=== PATIENT | female | born 1975 | race Caucasian/White ===

== ENCOUNTER 2022-10-03 13:41 | Emergency (ER) | payer OTHER, SELFPAY ==
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
[2022-10-03 14:08] VITALS: BP 132/79; PULSE 80; RESP 16; TEMP 36.5; O2SAT 99
--- NOTE | 2022-10-03 14:57 | PC.NURSE ---
C-collar in place from triage.
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
--- NOTE | 2022-10-03 15:45 | PC.NURSE ---
PT taken to images at this time.
[2022-10-03] MEDS: KETOROLAC (*BKC) 60 MG/2 ML VIAL IM (15:55)
[2022-10-03 16:34] VITALS: BP 118/87; PULSE 75; RESP 16; O2SAT 100
== END 2022-10-03 16:36 | disposition home or self-care (01) ==
PROVIDERS: Emergency Provider Emergency Medicine; PCP Nurse Practitioner Family
DX: S13.4XXA Sprain of ligaments of cervical spine, initial encounter (principal); S16.1XXA Strain of muscle, fascia and tendon at neck level, initial encounter; M47.812 Spondylosis without myelopathy or radiculopathy, cervical region; V43.62XA Car passenger injured in collision with other type car in traffic accident, initial encounter
CPT/HCPCS: 72040; 72072; 96372; 99283; J1885

== ENCOUNTER 2022-12-16 07:56 | Emergency (ER) | payer OTHER, SELFPAY ==
--- NOTE | ~2022-12-16 | XR_ITS ---
EXAMINATION: XR forearm LT 2V DATE: 12/16/2022 09:23 INDICATION: Left forearm pain. Fall. TECHNIQUE: 2 views of left forearm were obtained. COMPARISON: None. FINDINGS: Bone alignment is normal. No fracture. Joint spaces are normal. No elbow joint effusion. IMPRESSION: 1. No fracture. Reviewed, dictated and finalized at location A. IMPRESSION: 1. No fracture.
--- NOTE | ~2022-12-16 | XR_ITS ---
EXAMINATION: XR ankle RT 2V DATE: 12/16/2022 09:24 INDICATION: Right ankle pain. Fall. TECHNIQUE: 2 views of right ankle were obtained. COMPARISON: None. FINDINGS: Bone alignment is normal. No fracture. Joint spaces are normal. There is an enthesophyte at posterior aspect of calcaneal tuberosity. IMPRESSION: 1. No fracture. Reviewed, dictated and finalized at location A. IMPRESSION: 1. No fracture.
--- NOTE | ~2022-12-16 | XR_ITS ---
Left Knee Technique: AP, lateral, and oblique views were obtained. Clinical History: Pain Findings: No fracture or dislocation is seen. Osseous alignment is anatomic. Joint spaces are preserv ed without degenerative or erosive change. Soft tissues are unremarkable. No joint effusion is seen. Impression: Unremarkable left knee radiographs. Reviewed, dictated and finalized at location . Impression: Unremarkable left knee radiographs.
[2022-12-16 08:11] VITALS: BP 142/92; PULSE 88; RESP 18; TEMP 36.5; O2SAT 98
[2022-12-16 08:23] VITALS: BP 142/92; PULSE 88; RESP 18; TEMP 36.5; O2SAT 98
--- NOTE | 2022-12-16 09:02 | ED.FALL ---
HPI - Fall General Chief Complaint: Fall Stated Complaint: fall Time Seen by Provider: 12/16/22 08:19 History of Present Illness HPI Narrative: 47-year-old female present to the emergency department for evaluation after having a ground-level fall. Patient states she was walking and twisted her right ankle. Patient states she did injure her left arm and left knee Related Data Allergies Allergy/AdvReac Type Severity Reaction Status Date / Time acetaminophen [From Percocet] Allergy Itching Verified 12/16/22 08:26 oxycodone [From Percocet] Allergy Itching Verified 12/16/22 08:26 Review of Systems Review of Systems: All systems reviewed & are unremarkable except as noted in HPI and below Exam Narrative: APPEARANCE: Well appearing, no pain, no distress, well-nourished. HEAD: normocephalic, atraumatic. EYES: PERRLA/EOMI, conjunctivae clear. NOSE: Normal no drainage NECK: Supple. No adenopathy, no masses. RESPIRATORY: Airway patent, respirations nonlabored. Clear to auscultation bilaterally, no rales, rhonchi, wheezing. CARDIOVASCULAR: Regular rate and rhythm without murmurs rubs or gallops. ABDOMINAL: Soft, nontender, nondistended, normal bowel sounds MUSCULOSKELETAL: Left forearm tenderness to palpation without deformity or ecchymosis. No left hand tenderness or wrist tenderness. Left knee tenderness to palpation with no significant deformity. Right ankle pain NEURO: Alert. Cranial nerves II through XII intact. Good gait. Good coordination SKIN: Warm, dry. Normal Color PSYCHIATRIC: Normal affect/mood. Course Course Emergency Course: 47-year-old female presented the emergency department for evaluation of left arm left knee and right ankle pain after falling. X-rays were negative for acute fractures or dislocations. Patient was updated the results of the work-up. Patient was advised to take Tylenol and ibuprofen for pain control. Vital Signs Vital signs: Vital Signs Temperature 97.7 F 12/16/22 08:11 Pulse Rate 88 12/16/22 08:11 Respiratory Rate 18 12/16/22 08:11 Blood Pressure 142/92 H 12/16/22 08:11 Pulse Oximetry 98 12/16/22 08:11 Temperature 97.7 F 12/16/22 08:23 Pulse Rate 88 12/16/22 08:23 Respiratory Rate 18 12/16/22 08:23 Blood Pressure 142/92 H 12/16/22 08:23 Pulse Oximetry 98 12/16/22 08:23 Oxygen Delivery Room Air 12/16/22 08:23 MDM - Fall Differential Diagnosis Differential diagnosis: Likely other (Forearm fracture, ankle fracture) Imaging Data Radiologist's impression: Impressions Forearm X-Ray 12/16/22 09:27 IMPRESSION: 1. No fracture. Ankle X-Ray 12/16/22 09:28 IMPRESSION: 1. No fracture. Knee X-Ray 12/16/22 09:28 Impression: Unremarkable left knee radiographs. Discharge Plan Discharge Clinical Impression: Arm pain, Acute leg pain, Ankle injury Patient Disposition: Home, Self-Care Condition: Stable Instructions: Antibiotic Form Additional Instructions: Tylenol and ibuprofen for pain control. Have close follow-up with your primary care physician. If you have any worsening symptoms then please call or return to the emergency department. Follow-up/Referrals: Felipa Diego, FUNERAL COUNSELOR [Primary Care Provider] -
== END 2022-12-16 10:19 | disposition home or self-care (01) ==
PROVIDERS: Emergency Provider Emergency Medicine
DX: S99.911A Unspecified injury of right ankle, initial encounter (principal); S59.912A Unspecified injury of left forearm, initial encounter; S89.92XA Unspecified injury of left lower leg, initial encounter; W18.39XA Other fall on same level, initial encounter; X50.9XXA Other and unspecified overexertion or strenuous movements or postures, initial encounter
CPT/HCPCS: 73090; 73562; 73600; 99284

== ENCOUNTER 2023-07-06 16:41 | Emergency (ER) | payer MEDICAID, SELFPAY ==
--- NOTE | ~2023-07-06 | XR_ITS ---
EXAMINATION: XR foot RT min 3V DATE: 07/06/2023 17:00 INDICATION: Right heel pain. TECHNIQUE: 3 views of right foot were obtained. COMPARISON: Right ankle radiographs 12/16/2022 FINDINGS: Bone alignment is normal. No fracture. There is mild osteoarthritis of first metatarsophala ngeal joint. There is an enthesophyte of posterior aspect of calcaneal tuberosity. IMPRESSION: 1. No fracture. Reviewed, dictated and finalized at location E. IMPRESSION: 1. No fracture.
[2023-07-06 16:42] VITALS: BP 135/98; PULSE 91; RESP 18; TEMP 36.6; O2SAT 100
--- NOTE | 2023-07-06 16:47 | ED.LOWEXIN ---
HPI - Extremity Injury (Lower) General Chief Complaint: Extremity Injury, Lower Stated Complaint: R foot pain Time Seen by Provider: 07/06/23 16:47 Source: patient Mode of arrival: ambulatory Limitations: no limitations History of Present Illness HPI Narrative: Katie is a 48-year-old female patient presenting to the ER today with complaints of right foot pain. She reports she is having pain over the plantar fascia and the anterior aspect the heel. This has been going on for 4 weeks. Was told that she had plantar fasciitis and was given prescription for anti-inflammatories. She states that she has taken anti-inflammatories and Tylenol occasionally for the pain but she cannot take the pain any longer. Pain is worse with ambulation. Related Data Allergies Allergy/AdvReac Type Severity Reaction Status Date / Time oxycodone Allergy Mild Unknown Unverified 07/06/23 16:44 Review of Systems Review of Systems: Pertinent positives per HPI. Patient denies any fever, chills, rash, headache, visual changes, dizziness, cough, runny nose, sore throat, shortness of breath, chest pain, palpitations, nausea, vomiting, diarrhea, constipation, abdominal pain, or any urinary issues. [facility] Past Medical History Medical History Healthy female adult Surgical History Surgical History No pertinent past surgical history Comments At the time of my signature, I reviewed and agree with the nursing past medical, surgical, social, and family history. There is no relevant family history pertinent to the patient complaint. Exam Narrative: General: Well-developed, well nourished, in no apparent distress Head: Normocephalic, atraumatic. Cardio: Regular rate and rhythm, s1 and s2 normal, no murmur appreciated. Resp: Clear to auscultation bilaterally, no rhonchi, rales, wheezing or rubs. Musculoskeletal: No deformity, tender to palpation over the plantar fascia and the anterior heel, no additional pain when doing dorsal flexion and plantar flexion against resistance, grossly normal range of motion, muscle strength strong and equal, peripheral pulse strong, no edema, no cyanosis, normal gait and station Course Course Emergency Course: Portions of this record may have been created with voice recognition software. Vital Signs Vital signs: Vital Signs Temperature 36.6 C 07/06/23 16:42 Pulse Rate 91 07/06/23 16:42 Respiratory Rate 18 07/06/23 16:42 Blood Pressure 135/98 H 07/06/23 16:42 Pulse Oximetry 100 07/06/23 16:42 Oxygen Delivery Room Air 07/06/23 16:42 Temperature 36.6 C 07/06/23 16:42 Pulse Rate 91 07/06/23 16:42 Respiratory Rate 18 07/06/23 16:42 Blood Pressure 135/98 H 07/06/23 16:42 Pulse Oximetry 100 07/06/23 16:42 Oxygen Delivery Room Air 07/06/23 16:42 Vital signs reviewed MDM - Extremity Injury (Lower) MDM Narrative Medical decision making narrative: At the time of visit patient is resting comfortably on the exam table. Patient appears to be nontoxic. Diagnostics: X-ray of the foot is negative for any sign of fracture or malalignment. Does have a posterior will calcaneal spur Plan: I suspect patient has plantar fasciitis/posterior heel spur. Prescription for Medrol Dosepak was sent to the pharmacy. Supportive measures were discussed with the patient and they voiced understanding discharge instructions and agrees to treatment plan. Return precautions reviewed Differential Diagnosis Differential diagnosis: Likely other (Plantar fasciitis, bone spur, tendinitis, acute foot pain) Imaging Data Radiologist's impression: ITS Impressions Foot X-Ray 07/06/23 17:06 IMPRESSION: 1. No fracture. Discharge Plan Discharge Clinical Impression: Plantar fasciitis Acute foot pain Qualifiers: Laterality: right Qualified Code(s): M79.671 -
== END 2023-07-06 18:00 | disposition home or self-care (01) ==
LOC: ANHED 17:53
PROVIDERS: Emergency Provider Nurse Practitioner Family; PCP Nurse Practitioner Family
DX: M72.2 Plantar fascial fibromatosis (principal); M77.31 Calcaneal spur, right foot
CPT/HCPCS: 73630; 99283

== ENCOUNTER 2023-09-05 06:51 | Day surgery (SDC) | payer OTHER, SELFPAY ==
--- NOTE | 2023-09-04 13:38 | PM.HPGS ---
History of Present Illness History of Present Illness Consent: Risks, benefits, and alternatives have been discussed and questions answered. Patient agrees to proceed with procedure. Chief complaint: Neoplasm screening. Narrative: Katie Vaca is a 48 year old female who is referred for colon cancer screening. Review of Systems Review of Systems: All systems reviewed & are unremarkable except as noted in HPI and below PMFSH Past Medical History Medical History Healthy female adult Surgical History Surgical History No pertinent past surgical history Social History Social History Smoking status: Former smoker Alcohol intake: current Substance use: never Substance use type: does not use Living arrangements: with family Spiritual care concerns: No Meds Home Medications and Allergies Home Medications Medication Instructions Recorded Confirmed Type montelukast 10 mg tablet 10 mg PO HS 08/24/23 09/05/23 History pantoprazole 40 mg tablet,delayed 40 mg PO DAILY 08/24/23 09/05/23 History release venlafaxine 75 mg capsule,extended 75 mg PO DAILY 08/24/23 09/05/23 History release 24 hr cetirizine 10 mg tablet (Zyrtec) 10 mg PO DAILY 09/05/23 09/05/23 History Allergies Allergy/AdvReac Type Severity Reaction Status Date / Time acetaminophen [From Percocet] Allergy Itching Verified 09/05/23 07:26 oxycodone [From Percocet] Allergy Itching Verified 09/05/23 07:26 Exam Resp: Auscultation: clear to auscultation bilaterally Cardio: Rate: regular rate Rhythm: regular rhythm GI: GI Palp: Yes Soft to palpation and No Tenderness to palpation present (GI) Assessment and Plan Assessment and plan (1) Colon cancer screening: Code(s): Z12.11 - Encounter for screening for malignant neoplasm of colon Status: Acute Assessment and Plan: Colonoscopy with possible biopsy or polypectomy or cautery or injection of substances.
[2023-09-05 07:27] VITALS: BP 142/97; PULSE 84; RESP 15; TEMP 36.7; O2SAT 100
[2023-09-05] MEDS: LACTATED RINGERS 1,000 ML 150 ML IV CONT (07:46)
--- NOTE | 2023-09-05 07:57 | WPDANESEPPF ---
Anes - Initial Pre Proc Eval Procedure: Operation Date: 09/05/23 08:30 Proposed Procedures p Screening Colonoscopy - Lazaro Caballero MD Date/Time: 09/05/23 07:57 Surgeon: Lazaro Caballero MD Pre Op Diagnosis: Neoplasm screening. Patient Data Age: 48 Gender: F Height: 1.7 m Weight: 86.5 kg Last Vital Signs Temp 36.7 C 09/05/23 07:27 Pulse 84 09/05/23 07:27 Resp 15 09/05/23 07:27 BP 142/97 H 09/05/23 07:27 Pulse Ox 100 09/05/23 07:27 O2 Del Method Room Air 09/05/23 07:27 Allergies Allergy/AdvReac Type Severity Reaction Status Date / Time acetaminophen [From Percocet] Allergy Itching Verified 09/05/23 07:26 oxycodone [From Percocet] Allergy Itching Verified 09/05/23 07:26 Home Medications Medication Instructions Recorded Confirmed Type montelukast 10 mg tablet 10 mg PO HS 08/24/23 09/05/23 History pantoprazole 40 mg tablet,delayed 40 mg PO DAILY 08/24/23 09/05/23 History release venlafaxine 75 mg capsule,extended 75 mg PO DAILY 08/24/23 09/05/23 History release 24 hr cetirizine 10 mg tablet (Zyrtec) 10 mg PO DAILY 09/05/23 09/05/23 History Patient hx anesthesia problems: none Family hx anesthesia problems: none Results Review: All pre-operative results and documents have been reviewed as part of the pre-operative evaluation. [facility] Past Medical History Medical History (Updated 09/05/23 @ 07:57 by Tony Dean MD) Overweight Surgical History Surgical History No pertinent past surgical history Social History Social History Smoking status: Former smoker Alcohol intake: current Substance use: never Substance use type: does not use Living arrangements: with family Spiritual care concerns: No Anes - Eval Final PreProcedure Day of Procedure 09/05/23 07:57 Patient weight: overweight Heart: regular rate and rhythm Lungs: clear to auscultation Airway: Mallampati scale class II Neurological: alert and oriented Last oral intake: >/= 8 hours ASA classification: II Emergent: no Anesthetic plan: proceed Results Review: All pre-operative results and documents have been reviewed as part of the pre-operative evaluation. Informed Consent: The patient's anesthetic plan and its attendant risks and benefits were discussed with the patient/family/POA. Questions were solicited and answers provided to the satisfaction of the patient/family/POA.
[2023-09-05 08:40] VITALS: BP 96/60; PULSE 86; RESP 16; O2SAT 96
[2023-09-05 08:50] VITALS: BP 104/62; PULSE 72; RESP 18; O2SAT 99
[2023-09-05 09:00] VITALS: BP 106/76; PULSE 72; RESP 16; O2SAT 100
--- NOTE | 2023-09-05 09:05 | WPDANESPN ---
Anes - Prog Note Post-Op Date/Time: 09/05/23 09:05 Cardiovascular status: normal Respiratory status: normal Airway patency: baseline Mental status: baseline Post-Op hydration status: normal Vital Signs: Last Vital Signs Temp 36.7 C 09/05/23 07:27 Pulse 84 09/05/23 07:27 Resp 15 09/05/23 07:27 BP 142/97 H 09/05/23 07:27 Pulse Ox 100 09/05/23 07:27 O2 Del Method Room Air 09/05/23 07:27 Pain Score (VAS): 0/10 I/O: Intake & Output 09/04/23 09/05/23 09/05/23 23:59 07:59 15:59 Intake Total 600 Balance 600 Patient Feedback: Patient satisfied with anesthetic care.
== END 2023-09-05 09:19 | disposition home or self-care (01) ==
PROVIDERS: PCP Nurse Practitioner Family; Visit Provider Internal Medicine Gastroenterology
PROC: 0DJD8ZZ Inspection of Lower Intestinal Tract, Via Natural or Artificial Opening Endoscopic (ICD-10-PCS; CPT 45378; principal; 2023-09-05 08:30)
DX: Z12.11 Encounter for screening for malignant neoplasm of colon (principal); K57.30 Diverticulosis of large intestine without perforation or abscess without bleeding
CPT/HCPCS: 45378

== ENCOUNTER 2024-05-14 18:03 | Emergency (ER) | payer OTHER, SELFPAY ==
--- NOTE | ~2024-05-14 | CT_ITS ---
EXAMINATION: CT brain wo con DATE: 05/14/2024 19:17 INDICATION: headache . TECHNIQUE: Computed tomography (CT) of the head was performed without intravenous contrast. The mA wa s adjusted according to patient size. Iterative reconstruction technique was employed. The dose-lengt h product was 605.33 mGy-cm. COMPARISON: None. FINDINGS: No acute intracranial hemorrhage or extra-axial fluid collection. No hydrocephalus, mass, or herniation. No acute ischemic infarct. Unremarkable dural venous sinus attenuation. No acute osseous abnormality. Minimal right mastoid fluid, the remaining aerated spaces are clear. IMPRESSION: No acute intracranial process. Reviewed, dictated and finalized at location K.
[2024-05-14 18:20] VITALS: BP 137/88; PULSE 99; RESP 16; TEMP 36.8; O2SAT 98
--- OUTSIDE RECORDS SUMMARY | 2024-05-14 18:30 | XMS_ITS | Patient Health Record ---
Author Organization Formerly [facility] Address [address] [place] [address] Care Team Providers Care Taste Tester Name Role Phone Latisha Godinez Primary Care Provider Cesia Covarrubias Unavailable [phone] Allergies Allergen (clinical drug ingredient) Drug/Non Drug Allergy documented on EMR Reaction Allergy Type Onset Date Status acetaminophen / oxycodone Percocet Unknown Drug Allergy Active Reason For Referral No Information Medications Medication SIG (Take, Route, Frequency, Duration) Notes Start Date End Date Status Wellbutrin 75 MG 1 tablet Orally ever y morning for 30 days 09/27/2017 Active LORazepam 0.5 MG 1 tablet as needed Orally Once a day as needed for 30 days Not-Taking fluvoxaMINE Maleate 25 MG 1 tablet at be dtime Orally at bedtime for 30 day(s) 12/02/2015 Not-Taking fluvoxaMINE Maleate 25 MG 1 tablet Orall y Once a day for 30 days 09/21/2016 Active Social History Tobacco Use: Social History Observation Description Date Details (start date - stop date) Never Smoker NA - NA Dont use, Tobacco Use/Smoking Question Answer Notes Are you a nonsmoker Additional Findings: Tobacco Non-User Current no n-smoker Alcohol Screen (Audit-C) Question Answer Notes Did you have a drink containing alcohol in the p ast year? No Points 0 Interpretation Negative Section Notes: Problems Problem Type SNOMED Code ICD Code Onset Dates Problem Status W/U Status Risk Notes Problem 03764929 Anxiety (F41.9) Active confirmed Problem 78484097 Depression, unspecified depression type (F32.9) Active confirmed Problem 623296520 Recurrent major depressive disorder, in full remission (F33.42) Active confirmed Plan Of Treatment No Information Insurance Providers Payer Name Payer Address Payer Phone Subscriber Number Group Number Insured Name Patient Relationship to Insured Coverage Start Date Coverage End Date [facility] [address] [place] [address] [id number] Katie Britt Self - patient is the insured 5 [employer] [facility] [address] [place] [address] [id number] Katie Britt Self - patient is the insured 8
--- OUTSIDE RECORDS SUMMARY | 2024-05-14 18:30 | XMS_ITS | Clinical Summary ---
Author Organization [facility] Address [address], [address] [address] Phone Care Team Providers Care Community Chest Officer Name Role Phone Diego Kassandra ORTIZ CNP Primary Care Provider [phone] Allergies Active Allergy Reactions Criticality Noted Date Comments Oxycodone-Acetaminophen Itching 01/14/2019 Medications citalopram (CELEXA) 20 MG Tablet 9 Active dicyclomine (BENTYL) 10 MG Capsule 9 Active loperamide (IMODIUM) 2 MG Capsule 9 Active ondansetron (ZOFRAN-ODT) 4 MG TABLET DISPERSIBLE 9 Active omeprazole (PRILOSEC) 20 MG CAPSULE DELAYED RELEASEIndicatio ns:Gastroesophag eal reflux disease, esophagitis presence not specified Omeprazole 20mg by mouth twice a day for one month, then once daily for 30 days. 90 Cap 3 9 Active Social History Tobacco Use Types Packs/Day Years Used Date Smoking Tobacco: Former Cigarettes 0.8 6 Smokeless Tobacco: Never Alcohol Use Standard Drinks/Week Comments Yes 0 (1 standard drink = 0.6 oz pur e alcohol) AUDIT-C Answer Date Recorded Frequency of Alcohol Consumption 2-4 times a mon01/14/2019 Average Number of Drinks Not on file 019 Frequency of Binge Drinking Not on file 01/04 Comments Unknown Sex and Gender Information Value Date Recorded Sex Assigned at Not on file Legal Sex Female 8:53 AM CDT Gender Identity Not on file Sexual Orientation Not on file Last Filed Vital Signs Vital Sign Reading Time Taken Comments Blood Pressure - - Pulse - - Temperature - - Respiratory Rate - - Oxygen Saturation - - Inhaled Oxygen Concentration - - Weight 82.1 kg (181 lb) 01/14/2019 3:46 PM [facility] Height 172.7 cm (5' 8 ) 01/14/2019 3:46 PM [facility] Body Mass Index 27.52 01/14/2019 3:46 PM [facility] Plan of Treatment Health Maintenance Due Date Last Done Comments Hepatitis C Virus (HCV) Screening 1976 TdaP Immunization 1976 Hepatitis B Immunization (1 of 3 - 19+ 3-dose series) 1995 Discussion re Starting/Frequency of Mammograms 2016 Colonoscopy 2021 Colorectal Cancer Screening 2021 Influenza Immunization (#1) 11/05/202312/06, 11/14/2017, 11/17/2015 SARS-COV-2 Immunization ( season) 2023 08/29/2020, 08/01/2020 Respiratory Syncytial Virus (RSV) Immunization (Adult) (1 - 1-dose 75+ series) 2051 Meningococcal Immunization (ACWY) Aged Out No longer eligible b ased on patient's age to complete this topic Pneumococcal Immunization Combined Aged Out No longer eligible b ased on patient's age to complete this topic Rotavirus Immunization Aged Out No lo nger eligible based on patient's age to complete this topic Insurance MEDICAID [place] Care Teams Community Chest Officer Relationship Specialty Start Date End Date Johnathon, DIANA Cannon, RUBBER OFF [address] [place] [address] PCP - General Family Medicine 01/14/19
--- OUTSIDE RECORDS SUMMARY | 2024-05-14 18:30 | XMS_ITS | Clinical Summary ---
Author Organization [facility] Address [address] [place] [address] Care Team Providers Care Skip Miner Blasting Name Role Phone JohnathonRickyKassandralkaudia Molina NP Primary Care Provider [phone] Allergies Active Allergy Reactions Criticality Noted Date Comments Oxycodone-Acetaminophen Unknown 06/06/2019 Medications venlafaxine (EFFEXOR) 37.5 mg tablet Take 1 tablet every day by oral route. 0 Active multivit with min-folic acid 200 mcg tablet,chewable Take by mouth Active montelukast (SINGULAIR) 10 mg tablet Take 10 mg by mouth nightly Active pantoprazole DR (PROTONIX) 40 mg EC tablet 0 Active ondansetron (ZOFRAN) 4 mg tablet ondansetron HCl 4 mg tablet Active Active Problems Problem Noted Date Diagnosed Date BMI 29.0-29.9,adult 08/28/2019 Gastroesophageal reflux disease with esophagitis 06/06/2019 Assessment & Plan (08/28/2019 1:52 PM CDT): EGD showed mild reflux esophagitis and mild erosive gastritis. Pt was instructed to stop omeprazole and placed on pantoprazole daily. She says her GERD symptoms have resolved with this medication. Continue this medication daily. Pt also continues to closely follow GERD diet. She is working on losing weight as well. Assessment & Plan (06/06/2019 10:00 AM CDT): Pt was having burning in chest a few times a week and dyspepsia. The burning in chest has resolved with use of Prilosec. She says dyspepsia still occurs occasionally but overall improved. Continue Prilosec daily. Will schedule EGD due to persistent cough and GERD. Constipation 06/06/2019 Assessment & Plan (08/28/2019 1:51 PM CDT): Pt says she was previously using Miralax which only worked mildly. Linzess prescribed was not covered so she did not start this medication. She has found that eating Activia yogurt and drinking cup of coffee in the morning helps with BM's. She usually has one daily that is normal. Assessment & Plan (06/06/2019 10:04 AM CDT): Pt says she has always skipped 2-3 days between BM's. She can get some cramping and bloating between BM's sometimes. She says when she does go, it is normal to loose. She says recently, she has been drinking more water and helps with her BM's. Suggested use of Miralax daily. Post-nasal drip 06/06/2019 Assessment & Plan (08/28/2019 1:44 PM CDT): Pt says still occurring despite taking singulair and zyrtec daily. She says this causes tickling in the throat and feels as if she has to cough often. Pt says she has flonase at home. Advised to try using flonase and f/u with PCP. Assessment & Plan (06/06/2019 10:03 AM CDT): Constant PND and tickle in throat. Most likely cause of cough. Gastroesophageal reflux disease 06/06/2019 Overview (06/06/2019): Added automatically from request for surgery [id number] Cough 06/06/2019 Overview (06/06/2019): Added automatically from request for surgery [id number] Assessment & Plan (08/28/2019 1:49 PM CDT): Still experiencing daily cough despite being on pantoprazole. I suspect her cough is due to allergies. Cough occurs with PND and hasn't improved with pantoprazole. Pt also has it all day and does not occur when she lies down to sleep at night. Advised to use flonase with singulair and zyrtec. She should f/u with PCP if symptoms persist. 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 Gender Identity Not on file Sexual Orientation Not on file Obstetrics History Last Filed Vital Signs Vital Sign Reading Time Taken Comments Blood Pressure 120/64 08/28/2019 12:59 PM CDT Pulse 96 08/28/2019 12:59 PM CDT Temperature 37.1 C (98.7 F) 08/28/2019 12:59 PM CDT Respiratory Rate 20 08/28/2019 12:59 PM CDT Oxygen Saturation 97% 08/28/2019 12:59 PM CDT Inhaled Oxygen Concentration - - Weight 86.6 kg (191 lb) 08/28/2019 12:59 PM CDT Height 170.2 cm (5' 7 ) 08/28/2019 12:59 PM CDT Body Mass Index 29.91 08/28/2019 12:59 PM CDT Plan of Treatment Health Maintenance Due Date Last Done Comments Breast Cancer Screening-Mammogram 1976 Colon Cancer Screening-Colonoscopy 1976 Depression Screening 1976 Hepatitis C Screening 1976 DTaP/Tdap/Td Vaccine (1 - Tdap) 1987 Hepatitis B Screening 1994 Regular Well Visit/Exam 18-64 1994 Influenza Vaccine (#1) 2023 9, 11/14/2017, 11/17/2015 Pneumococcal vaccine <65 Aged Out No longer eligible based on patient's age to complete this topic Insurance [facility] Advance Directives For more information, please contact: [phone] * Full Code (Latest Code Status on File) Date Activated Date Inactivated Comments 08/21/2019 9:14 AM 08/21/2019 2:48 PM * Full Code Date Activated Date Inactivated Comments 08/21/2019 9:13 AM 08/21/2019 9:14 AM Care Teams Skip Miner Blasting Relationship Specialty Start Date End Date Kassandra Diego NP [address] [place] [id number] PCP - General Nurse Practitioner 06/06/19
--- OUTSIDE RECORDS SUMMARY | 2024-05-14 18:30 | XMS_ITS | Referral Summary ---
Author Organization [facility] Address [address] [place] [address] Care Team Providers Care Machine Inker Name Role Phone JohnathonRickyKassandraklaudia Molina NP Primary Care Provider [phone] Allergies Active Allergy Reactions Criticality Noted Date [...] (06/06/2019): Added automatically from request for surgery [id number] Cough 06/06/2019 Overview (06/06/2019): Added automatically from request for surgery [id number] Assessment & Plan (08/28/2019 1:49 PM CDT): [...] should f/u with PCP if symptoms persist. 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
--- NOTE | 2024-05-14 18:43 | ED.HA ---
HPI - Headache General Chief Complaint: Headache <Betsy Lainez PA-C - Last Filed: 05/17/24 17:09> Stated Complaint: h/a x4 days, nausea, right ear pain <Betsy Lainez PA-C - Last Filed: 05/17/24 17:09> Time Seen by Provider: 05/14/24 18:43 <Betsy Lainez PA-C - Last Filed: 05/17/24 17:09> Focused HPI: This is a 49 year old female that presents to the ER for headache, nausea, congestion. Reports this has been ongoing over the last 4 days. She went to urgent care last night. Her influenza swab was negative. She received a shot of Toradol and a steroid. Her headache has returned. Reports history of migraines. GENERAL: Well-appearing, well-nourished, and in no acute distress. HEAD: Normocephalic, atraumatic. CHEST: Clear to auscultation. ?No respiratory distress. HEART: Regular rate and rhythm.? NEURO: ?Alert and oriented x3. Patient screened in triage and initial orders placed.? ?Additional care and disposition to be based upon?diagnostic testing and treatment. <Betsy Lainez PA-C - Last Filed: 05/17/24 17:09> Source: patient <Edgar Merritt PA-C - Last Filed: 05/15/24 02:32> Mode of arrival: ambulatory <Edgar Merritt PA-C - Last Filed: 05/15/24 02:32> Limitations: no limitations <MAHESH Hernandez Last Filed: 05/15/24 02:32> History of Present Illness HPI Narrative: Agree with MSE note above. This does seem like a typical pattern in character of her migraines. She states the only difference is that they do not normally last this long. Denies head injury, numbness, weakness. She does describe photophobia and nausea but no vomiting. Denies vision change, syncope, neck pain, neck stiffness <MAHESH Hernandez Last Filed: 05/15/24 02:32> Related Data Home Medications: Home Medications ?Medication ?Instructions ?Recorded ?Confirmed ?Last Taken ?Type montelukast 10 mg tablet 10 mg PO HS 08/24/23 09/05/23 Unknown History pantoprazole 40 mg tablet,delayed 40 mg PO DAILY 08/24/23 09/05/23 09/05/23 06:30 History release venlafaxine 75 mg capsule,extended 75 mg PO DAILY 08/24/23 09/05/23 Unknown History release 24 hr cetirizine 10 mg tablet (Zyrtec) 10 mg PO DAILY 09/05/23 09/05/23 09/05/23 06:30 History <Betsy Lainez PA-C - Last Filed: 05/17/24 17:09> Allergies/Adverse Reactions: Allergies Allergy/AdvReac Type Severity Reaction Status Date / Time acetaminophen (From Percocet) Allergy Itching Verified 09/05/23 07:26 oxycodone (From Percocet) Allergy Itching Verified 09/05/23 07:26 <Betsy Lainez PA-C - Last Filed: 05/17/24 17:09> Review of Systems Review of Systems: All systems as dictated in HPI <Edgar Merritt PA-C - Last Filed: 05/15/24 02:32> PMFSH Past Medical History Medical History: Medical History (Updated 05/17/24 @ 17:09 by Betsy Lainez PA-C) Overweight <Betsy Lainez PA-C - Last Filed: 05/17/24 17:09> Surgical History Surgical History: Surgical History No pertinent past surgical history <Betsy Lainez PA-C - Last Filed: 05/17/24 17:09> Social History Social History: Social History Smoking status: Former smoker Alcohol intake: current Substance use: never Substance use type: does not use Living arrangements: with family Spiritual care concerns: No <Betsy Lainez PA-C - Last Filed: 05/17/24 17:09> Exam Narrative: GENERAL: Well-appearing, well-nourished, and in no acute distress. HEAD: Normocephalic, atraumatic. EYES: PERRLA and EOMI. ENT: Nares clear, no rhinorrhea or epistaxis. Mucous membranes moist. Oropharynx without tonsillar hypertrophy exudate or other lesions. NECK: Supple. No adenopathy or masses. CHEST: No respiratory distress. Clear to auscultation. No wheezes rales or rhonchi HEART: Regular rate and rhythm. No murmur heard. Normal peripheral pulses. ABDOMEN: Soft, nontender, nondistended, normal active bowel sounds. MSK: Normal range of motion. No edema. SKIN: Warm, dry, no rash. NEURO: Alert and oriented x4. No focal deficits. PSYCH: Normal mood and affect. <MAHESH Hernandez Last Filed: 05/15/24 02:32> Course Vital Signs Vital signs: Vital Signs Temperature 98.2 F 05/14/24 18:20 Pulse Rate 99 05/14/24 18:20 Respiratory Rate 16 05/14/24 18:20 Blood Pressure 137/88 05/14/24 18:20 Pulse Oximetry 98 05/14/24 18:20 Oxygen Delivery Room Air 05/14/24 18:20 Temperature 98.2 F 05/14/24 18:20 Pulse Rate 84 05/14/24 22:45 Respiratory Rate 16 05/14/24 22:45 Blood Pressure 142/78 H 05/14/24 22:45 Pulse Oximetry 99 05/14/24 22:45 Oxygen Delivery Room Air 05/14/24 18:20 <MAHESH García Last Filed: 05/17/24 17:09> Vital Signs Temperature 98.2 F 05/14/24 18:20 Pulse Rate 99 05/14/24 18:20 Respiratory Rate 16 05/14/24 18:20 Blood Pressure 137/88 05/14/24 18:20 Pulse Oximetry 98 05/14/24 18:20 Oxygen Delivery Room Air 05/14/24 18:20 Temperature 98.2 F 05/14/24 18:20 Pulse Rate 84 05/14/24 22:45 Respiratory Rate 16 05/14/24 22:45 Blood Pressure 142/78 H 05/14/24 22:45 Pulse Oximetry 99 05/14/24 22:45 Oxygen Delivery Room Air 05/14/24 18:20 <MAHESH Hernandez Last Filed: 05/15/24 02:32> MDM - Headache MDM Narrative Medical decision making narrative: This is a 41-year-old female who presents to the ED for chief complaint of migraine x4 days. Vitals are normal. Exam is unremarkable. No red flag signs for headache today. CT brain without contrast shows no acute findings. Patient was given headache cocktail with improvement of symptoms. Patient will be discharged in stable condition. Supportive measures discussed and return precautions given. Patient is understanding and agreeable with plan for discharge with PCP follow-up. <Edgar Merritt PA-C - Last Filed: 05/15/24 02:32> Imaging Data Radiologist's impression: ITS Impressions Head CT 05/14/24 19:29 IMPRESSION: No acute intracranial process. <Betsy Lainez PA-C - Last Filed: 05/17/24 17:09> Critical Care Time Critical Care Time Critical Care Time: No <Betsy Lainez PA-C - Last Filed: 05/17/24 17:09> Discharge Plan Discharge Clinical Impression: Migraine Qualifiers: Migraine type: unspecified Status migrainosus presence: without status migrainosus Intractability: not intractable Qualified Code(s): G43.909 - Migraine, unspecified, not intractable, without status migrainosus <Betsy Lainez PA-C - Last Filed: 05/17/24 17:09> Patient Disposition: Home, Self-Care <Betsy Lainez PA-C - Last Filed: 05/17/24 17:09> Condition: Stable <Betsy Lainez PA-C - Last Filed: 05/17/24 17:09> Instructions: Antibiotic Form, Migraine Headache (ED) <MAHESH García Last Filed: 05/17/24 17:09> Additional Instructions: Exam and imaging today are reassuring. Please follow-up closely with PCP regarding frequent headaches. If you have any new or worsening symptoms please return to the ER for further evaluation. <Betsy Lainez PA-C - Last Filed: 05/17/24 17:09> Patient Language: Tajik <MAHESH García Last Filed: 05/17/24 17:09> Prescriptions: No Action venlafaxine 75 mg capsule,extended release 24hr 75 mg PO DAILY pantoprazole 40 mg tablet,delayed release (DR/EC) 40 mg PO DAILY montelukast 10 mg tablet 10 mg PO HS cetirizine [Zyrtec] 10 mg Tablet 10 mg PO DAILY <Betsy Lainez PA-C - Last Filed: 05/17/24 17:09> Follow-up/Referrals: Diego,Kassandra Hendricks APN [Primary Care Provider] - <Betsy Lainez PA-C - Last Filed: 05/17/24 17:09> Time of Disposition: 22:23 <Betsy Lainez PA-C - Last Filed: 05/17/24 17:09> 22:23 <Edgar Merritt PA-C - Last Filed: 05/15/24 02:32>
--- OUTSIDE RECORDS SUMMARY | 2024-05-14 20:58 | XMS_ITS | Clinical Summary ---
Author Organization [facility] Address [address], [address] [address] Phone Care Team Providers Care Hydrogen Plant Operator Name Role Phone Diego Kassandra ORTIZ CNP Primary Care Provider [phone] Allergies Active Allergy Reactions Criticality Noted Date [...] 82.1 kg (181 lb) 01/14/2019 3:46 PM VP OUTCOMES Height 172.7 cm (5' 8 ) 01/14/2019 3:46 PM VP OUTCOMES Body Mass Index 27.52 01/14/2019 3:46 PM VP OUTCOMES Plan of Treatment Health Maintenance Due Date [...] this topic Insurance MEDICAID [place] Care Teams Hydrogen Plant Operator Relationship Specialty Start Date End Date Johnathon, DIANA Cannon, METER REPAIRER HELPER [address] [place] [address] PCP - General Family Medicine 01/14/19
--- OUTSIDE RECORDS SUMMARY | 2024-05-14 20:58 | XMS_ITS | Referral Summary ---
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
--- OUTSIDE RECORDS SUMMARY | 2024-05-14 20:58 | XMS_ITS | Clinical Summary ---
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 Gender Identity Not on file Sexual Orientation [...] patient's age to complete this topic Insurance [facility] Advance Directives For more information, please contact: [phone] * Full Code (Latest Code Status on File) Date Activated Date Inactivated Comments 08/21/2019 9:14 AM 08/21/2019 2:48 PM * Full Code Date Activated Date Inactivated Comments 08/21/2019 9:13 AM 08/21/2019 9:14 AM Care Teams Unix System Administrator Relationship Specialty Start Date End Date Kassandra Diego NP [address] [place] [id number] PCP - General Nurse Practitioner 06/06/19
[2024-05-14] MEDS: diphenhydrAMINE HCl INJ 50 MG/ML VIAL 25 MG IV PUSH (22:15)
[2024-05-14] MEDS: SODIUM CHLORIDE 0.9% IV 1,000 ML 999 ML IV CONT (22:15)
[2024-05-14] MEDS: KETOROLAC 15 MG/ML VIAL (*BKC) IV PUSH (22:15)
[2024-05-14] MEDS: PROCHLORPERAZINE EDISYLATE 10 MG/2 ML VIAL IV PUSH (22:15)
[2024-05-14 22:45] VITALS: BP 142/78; PULSE 84; RESP 16; O2SAT 99
== END 2024-05-14 23:22 | disposition home or self-care (01) ==
PROVIDERS: Emergency Provider Physician Assistant; PCP Nurse Practitioner Family
DX: G43.909 Migraine, unspecified, not intractable, without status migrainosus (principal)
CPT/HCPCS: 70450; 96361; 96374; 96375; 99284; J0780; J1200; J1885; J7030

== ENCOUNTER 2024-11-10 13:03 | Emergency (ER) | payer OTHER, SELFPAY ==
--- NOTE | ~2024-11-10 | XR_ITS ---
EXAMINATION: XR chest 2V, 11/10/2024 13:39 CDT HISTORY: cough COMPARISON: No comparisons available. Technique: 2 views obtained. Findings: The lungs are clear, no effusion. No pneumothorax. Heart is normal size. Mediastinal and hilar contours are within normal limits. Bony thorax no acute abnormality. Impression: No acute cardiopulmonary abnormality. Reviewed, dictated and finalized at location A. Impression: No acute cardiopulmonary abnormality.
[2024-11-10 13:20] VITALS: BP 133/81; PULSE 92; RESP 16; TEMP 36.3; O2SAT 100
[2024-11-10 13:37] LABS: EDCOVIDSCREEN Negative (Negative); EDINFLUASCREEN Negative (Negative); EDINFLUBSCREEN Negative (Negative); EDSTREPNEGPOS1 Negative (Negative)
--- NOTE | 2024-11-10 13:41 | ED.GENADULT ---
HPI - General Adult General Chief complaint: Upper Respiratory Infection Stated complaint: COUGH/CONGESTION/HEADACHE/EARS Source: patient Mode of arrival: ambulatory Limitations: no limitations History of Present Illness HPI narrative: Patient presents for evaluation of sick symptoms for last 5 days. Symptoms include nasal congestion, sore throat, bilateral ear itching, productive cough of yellow sputum, dyspnea on exertion and diarrhea. She states she has episodes of urinary incontinence during coughing episodes. She denies any fever, chills, nausea, vomiting. She does not smoke or vape. She has tried taking cough medication and mucinex for her symptoms. Related Data Home Medications ?Medication ?Instructions ?Recorded ?Confirmed ?Last Taken ?Type montelukast 10 mg tablet 10 mg PO HS 08/24/23 09/05/23 Unknown History pantoprazole 40 mg tablet,delayed 40 mg PO DAILY 08/24/23 09/05/23 09/05/23 06:30 History release venlafaxine 75 mg capsule,extended 75 mg PO DAILY 08/24/23 09/05/23 Unknown History release 24 hr cetirizine 10 mg tablet (Zyrtec) 10 mg PO DAILY 09/05/23 09/05/23 09/05/23 06:30 History Allergies Allergy/AdvReac Type Severity Reaction Status Date / Time acetaminophen (From Percocet) Allergy Itching Verified 09/05/23 07:26 oxycodone (From Percocet) Allergy Itching Verified 09/05/23 07:26 Review of Systems Review of Systems: CONSTITUTIONAL: Denies fever, chills, or sweats. EYES: Denies visual changes, redness, or discharge. ENT: reports nasal congestion, bilateral ear itching, and sore throat CARDIOVASCULAR: Denies chest pain, palpitations, or edema. RESPIRATORY: Reports productive cough and dyspnea on exertion GASTROINTESTINAL: Denies abdominal pain, nausea, vomiting, or diarrhea. GENITOURINARY: Denies dysuria or hematuria. SKIN: Denies rash or itching. MUSCULOSKELETAL: Denies back pain, joint pain, or myalgia. NEUROLOGIC: Denies headache, numbness, dizziness, or weakness. PSYCHIATRIC: Denies anxiety or depression. [facility] Past Medical History Medical History Depression Overweight Surgical History Surgical History No pertinent past surgical history Family History Family History Mother Family history non-contributory Social History Social History Smoking status: Former smoker Alcohol intake: current Substance use: never Substance use type: does not use Living arrangements: with family Spiritual care concerns: No Exam Narrative: GENERAL: Well-appearing, well-nourished, and in no acute distress. HEAD: Normocephalic, atraumatic. EYES: PERRLA and EOMI. ENT: Nares clear, no rhinorrhea or epistaxis. Mucous membranes moist. Oropharynx without tonsillar hypertrophy exudate or other lesions. Bilateral TMs pearly moore nonbulging NECK: Supple. No adenopathy or masses. No carotid bruits or JVD CHEST: rales noted bilaterally. Cough present on exam. HEART: Regular rate and rhythm. No murmur heard. Normal peripheral pulses. ABDOMEN: Soft, nontender, nondistended, normal active bowel sounds. EXTREMITIES: Normal range of motion. No edema. SKIN: Warm, dry, no rash. NEURO: No focal deficits. Alert and oriented x3. PSYCH: Normal mood and affect. Course Course Emergency Course: This is a 49-year-old female who presented for evaluation of sick symptoms. Strep, COVID, influenza were negative. Chest x-ray negative. Patient had wheezing on exam sore discharge with prednisone and albuterol. She also has evidence of otitis medias will discharge with Augmentin. She should increase fluid intake. OTC meds for symptom management. Follow up with primary care. Go to the ER for worsening symptoms. Pt in agreement with plan of care. Level of Care: Express Care Visit Vital Signs Vital signs: Vital Signs Temperature 36.3 C L 11/10/24 13:20 Pulse Rate 92 11/10/24 13:20 Respiratory Rate 16 11/10/24 13:20 Blood Pressure 133/81 11/10/24 13:20 Pulse Oximetry 100 11/10/24 13:20 Temperature 36.3 C L 11/10/24 13:20 Pulse Rate 92 11/10/24 13:20 Respiratory Rate 16 11/10/24 13:20 Blood Pressure 133/81 11/10/24 13:20 Pulse Oximetry 100 11/10/24 13:20 Medical Decision Making Vital Signs Vital Signs: Vital Signs Temperature 36.3 C L 11/10/24 13:20 Pulse Rate 92 11/10/24 13:20 Respiratory Rate 16 11/10/24 13:20 Blood Pressure 133/81 11/10/24 13:20 Pulse Oximetry 100 11/10/24 13:20 Temperature 36.3 C L 11/10/24 13:20 Pulse Rate 92 11/10/24 13:20 Respiratory Rate 16 11/10/24 13:20 Blood Pressure 133/81 11/10/24 13:20 Pulse Oximetry 100 11/10/24 13:20 Lab Data Labs: Lab Results 11/10/24 Range/Units 13:34 POC Influenza A Ag Negative (Negative) POC Influenza B Ag Negative (Negative) POC SARS CoV-2 Ag Negative (Negative) POC Grp A Strep Screen Negative (Negative) Imaging Data Radiologist's impression: EXAMINATION: XR chest 2V, 11/10/2024 13:39 CDT HISTORY: cough COMPARISON: No comparisons available. Technique: 2 views obtained. Findings: The lungs are clear, no effusion. No pneumothorax. Heart is normal size. Mediastinal and hilar contours are within normal limits. Bony thorax no acute abnormality. Impression: No acute cardiopulmonary abnormality. Discharge Plan Discharge Clinical Impression: Otitis media Patient Disposition: Home Condition: Stable Instructions: Antibiotic Form, Ear Infection (GEN) Patient Language: Tunisian Prescriptions: New amoxicillin-pot clavulanate 875-125 mg tablet 1 tablet PO Q12H Qty: 20 0RF prednisone 50 mg tablet 50 mg PO DAILY Qty: 5 0RF albuterol sulfate [Ventolin HFA] 90 mcg/actuation HFA aerosol inhaler 2 puff inhalation QID Qty: 8.5 0RF No Action venlafaxine 75 mg capsule,extended release 24hr 75 mg PO DAILY pantoprazole 40 mg tablet,delayed release (DR/EC) 40 mg PO DAILY montelukast 10 mg tablet 10 mg PO HS cetirizine [Zyrtec] 10 mg Tablet 10 mg PO DAILY Follow-up/Referrals: Diego,Kassandra Hendricks APN [Primary Care Provider, Unknown] Time of Disposition: 14:27
== END 2024-11-10 14:32 | disposition home or self-care (01) ==
PROVIDERS: Emergency Provider Nurse Practitioner; PCP Nurse Practitioner Family
DX: H66.93 Otitis media, unspecified, bilateral (principal); Z20.822 Contact with and (suspected) exposure to COVID-19; F32.A Depression, unspecified; Z87.891 Personal history of nicotine dependence
CPT/HCPCS: 71046; 87081; 87426; 87804; 87880; 99213; G0463